=== PATIENT | female | born 1990 | race American Indian/Alaskan Native ===

== ENCOUNTER 2019-09-26 23:05 | Emergency (ER) | payer OTHER ==
[2019-09-26 23:15] VITALS: BP 147/83
[2019-09-26] MEDS ORDERED: LIDOCAINE (2%) 20 MG/1 ML VIAL 20 ML MDV INFILTRATI STA (23:28)
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
== END 2019-09-27 | disposition home or self-care (01) ==
LOC: ED 23:05
DX: S81.811A Laceration without foreign body, right lower leg, initial encounter (principal); Y04.8XXA Assault by other bodily force, initial encounter; Y93.89 Activity, other specified; Y92.89 Other specified places as the place of occurrence of the external cause; Y99.8 Other external cause status
CPT/HCPCS: 99281

== ENCOUNTER 2022-01-14 22:55 | Outpatient (CLI) | payer MEDICAID, OTHER ==
[2022-01-14 23:30] VITALS: BP 117/65
--- NOTE | 2022-01-15 03:33 | Ultrasound Report ---
OB ultrasound INDICATION: Contractions FINDINGS: Single live intrauterine in cephalic position. LUISANA measures 16 cm growth BPD 34 weeks 5 days Head circumference 36 weeks 0 days Abdominal circumference 37 weeks 3 days Femoral length 35 weeks 0 days weight 29 31 g. Anterior placenta grade 3. heart rate 1 39 bpm IMPRESSION: Intrauterine with an ultrasound age of 35 weeks 6 days. Signer Name: Andrea Correa MD Signed: 01/15/2022 3:29 AM Workstation Name: [id number]
== END 2022-01-15 03:47 | disposition home or self-care (01) ==
LOC: TRG 22:55 → APU 22:56 → TRG 01-15 03:47
PROVIDERS: ATTEND Obstetrics & Gynecology Gynecology
DX: O47.9 False labor, unspecified (principal); O26.893 Other specified pregnancy related conditions, third trimester; M54.50 Low back pain, unspecified; Z3A.37 37 weeks gestation of pregnancy
CPT/HCPCS: 59025; 76816